=== PATIENT | male | born 1990 | race Caucasian/White ===

== ENCOUNTER 2023-08-23 12:12 | Emergency (ER) | payer MEDICAID ==
[~2023-08-23] VITALS: Ht 172.7 cm; Wt 72.6 kg
[2023-08-23 12:16] VITALS: O2SAT 99
[2023-08-23 13:30] VITALS: BP 110/65; PULSE 71; RESP 16; TEMP 97.8
== END 2023-08-23 15:43 | disposition home or self-care (01) ==
LOC: ER 12:24
DX: F19.90 Other psychoactive substance use, unspecified, uncomplicated (principal); Z98.890 Other specified postprocedural states
CPT/HCPCS: 99283